=== PATIENT | male | born 1960 ===

== ENCOUNTER 2016-10-30 06:08 | Day surgery (SDC) | payer MEDICARE, MEDICAID ==
[2016-10-16 07:51] VITALS: BMI 38.4
[2016-10-30] MEDS ORDERED: Iohexol 350mgl/ml 50 ML ONE (06:47)
[2016-10-30] MEDS ORDERED: Lidocaine 2% Inj (20ml) ONE (06:47)
[2016-10-30 07:13] LABS: ADD MANUAL DIFF? NO
[2016-10-30 07:22] LABS: BASO # 0.01 K/mm3 (0.0-2.0); BASO % 0.1 % (0.0-3.0); EOS # 0.1 (0.0-0.7); EOS % 0.8 % (1.5-5.0); GRAN # 7.14 (1.4-6.5); GRAN % 62.2 % (50.0-68.0); LYMPH # 3.6 (1.2-3.4); LYMPH % 30.9 % (22.0-35.0); MEAN CELL VOLUME 63.3 fL (80.0-105.0); MEAN CORPUSCULAR HEMOGLOBIN 19.8 pg (25.0-35.0); MEAN CORPUSCULAR HGB CONC 31.3 g/dl (31.0-37.0); MEAN PLATELET VOLUME 10.2 fl (7.0-11.0); MONO # 0.7 (0.1-0.6); PLATELET COUNT 288 10^3/uL (120.0-450.0); RED CELL DISTRIBUTION WIDTH 15.8 % (11.5-14.5); WHITE BLOOD COUNT 11.5 10^3/ul (4.5-11.0)
[2016-10-30 07:28] LABS: BLOOD UREA NITROGEN 11 mg/dL (7-21); CALCIUM 9.2 mg/dL (8.4-10.5); CARBON DIOXIDE 28 mmol/L (21-33); CHLORIDE 98 mmol/L (98-107); CHOLESTEROL 132 mg/dL (130-200); GFR AFRICAN-AMERICAN > 60; GLUCOSE,RANDOM 117 mg/dL (70-110); POTASSIUM 4.3 mmol/L (3.6-5.0); SODIUM 138 mmol/L (132-148)
[2016-10-30 07:32] LABS: INR 1.02 (0.93-1.08); PARTIAL THROMBOPLASTIN TIME 26.8 Seconds (23.7-30.8)
[2016-10-30] MEDS ORDERED: Midazolam 2 MG/2 ML VIAL ONE ×2 (07:43→07:49)
[2016-10-30 07:47] VITALS: TEMP 97.9
[2016-10-30] MEDS ORDERED: Iohexol 350 MG/100 ML VIAL ONE (07:59)
[2016-10-30] MEDS ORDERED: Sodium Chloride 0.9% 1,000 ML IV SCH (08:30)
--- NOTE | 2016-10-30 10:22 | CARDCATH ---
PROCEDURE DATE: 10/30/2016 HISTORY: The patient is a 56-year-old male who presents with a cardiomyopathy. The patient is predi abetic, complains of occasional shortness of breath, lives a sedentary life and has gained weight sin ce his last evaluation. His stress test was abnormal. Because of this, a cardiac catheterization was recommended. PROCEDURE: Left heart catheterization with coronary angiography and left ventriculogram. The right femoral artery was cannulated with a 6-Hungarian sheath. There were no complications. Findings on catheterization revealed a left ventricle that was dilated and diffusely hypokinetic. Es timated ejection fraction is approximately 40%. His coronary anatomy revealed calcification in the proximal LAD as well as calcification in the RCA. The right coronary artery was a codominant vessel. There was calcification in its proximal portion w ith diffuse atherosclerosis without critical lesions. The left main artery was unremarkable. The LAD revealed calcification in its proximal portion with diffuse atherosclerosis in the LAD as wel l as the diagonal vessel without critical stenoses. The circumflex artery and obtuse marginal branches revealed diffuse atherosclerosis without critical lesions. Angio-Seal was used to close the femoral artery site. The patient tolerated the procedure well. IN SUMMARY: The procedure revealed a dilated cardiomyopathy with an ejection fraction of approximate ly 40%. His coronary arteries revealed no critical stenoses; however, there was diffuse atherosclerosis and c alcification in multiple vessels. Given these findings, I have discussed with the patient about the need for a cardiac risk reduction p angieram which he has ignored over the past couple of years. I have discussed with him the deterioration of his left ventricle which will require ARBS as well as a cardiac risk reduction program. I have discussed this with the patient. He will follow up with me in 1-2 weeks to start his medications with close monitoring as well as to reemphasize the need for c ardiac risk reduction program. Eleuterio Snow MD cc: [phone] TT: 10/30/2016 10:21:56 nm
[2016-10-30 12:29] VITALS: RESP 18; O2SAT 98
[2016-10-30 13:56] VITALS: BP 124/80; PULSE 69
--- NOTE | 2016-10-30 15:40 | CARD ---
APPROVED REPORT EKG Measurement Heart [id number] <Conclusion> Normal sinus rhythm Possible Left atrial enlargement Borderline ECG
== END 2016-10-30 14:30 | disposition home or self-care (01) ==
LOC: CATH 06:08
PROVIDERS: ATTEND Internal Medicine Cardiovascular Disease
DX: I42.0 Dilated cardiomyopathy (principal); R73.03 Prediabetes; E66.09 Other obesity due to excess calories; R94.39 Abnormal result of other cardiovascular function study
CPT/HCPCS: 36415; 80048; 80061; 85025; 85610; 85730; 86850; 86900; 93005; 93458; 99152; C1760; C1769; C2629; J1644; J2250; J3010; J7040; Q9967 ×2